=== PATIENT | male | born 1990 | race Hispanic/Latino ===

== ENCOUNTER 2019-04-01 01:30 | Emergency (ER) | payer OTHER ==
[2019-04-01] MEDS ORDERED: IBUPROFEN 600 MG TABLET ONE (02:14)
[2019-04-01] MEDS ORDERED: ONDANSETRON ODT 4 MG TAB ONE (02:14)
== END 2019-04-01 03:06 | disposition home or self-care (01) ==
LOC: EDH 01:30
DX: B34.9 Viral infection, unspecified (principal); Z90.49 Acquired absence of other specified parts of digestive tract; Z88.0 Allergy status to penicillin

== ENCOUNTER 2019-12-25 22:33 | Emergency (ER) | payer SELFPAY ==
[2019-12-25] MEDS ORDERED: CYCLOBENZAPRINE HCL 10 MG TABLET ONE (23:31)
[2019-12-25] MEDS ORDERED: KETOROLAC TROMETHAMINE 60 MG/2 ML VIAL ONE (23:31)
== END 2019-12-25 23:41 | disposition home or self-care (01) ==
LOC: EDH 22:33
DX: M54.5 Low back pain (principal); M62.838 Other muscle spasm
CPT/HCPCS: 96372; 99283; J1885